=== PATIENT | female | born 1985 | race Caucasian/White ===

== ENCOUNTER 2021-01-01 17:25 | Emergency (ER) | payer OTHER ==
[~2021-01-01] VITALS: Ht 154.9 cm; Wt 68.2 kg
[2021-01-01] MEDS ORDERED: CYCL-331 PO (19:26)
--- NOTE | 2021-01-01 19:26 | PHYS DOC ---
Past History Past Medical History: No Pertinent History Past Surgical History: Tubal ligation Alcohol Use: None Adult General Chief Complaint Chief Complaint: BACK PAIN OR INJURY HPI HPI Patient is a 35-year-old female who presents with back pain. States she was lifting up her child earlier in the day and felt a twinge and her upper back in between her shoulder blades, more on the left than the right. States it hurts a little, 2 out of 10, but feels really tight and like she is having a spasm/charley horse. Denies any other injuries. Denies any numbness/weakness/tingling. States she is able to ambulate without issue. States she took some Aleve earlier which provided a small amount of relief. Review of Systems Review of Systems Review of systems otherwise unremarkable except noted in HPI Current Medications Current Medications Current Medications Medications (Trade) Dose Ordered Sig/Eleazar Start Time Stop Time Status Last Admin Dose Admin Cyclobenzaprine HCl (Flexeril) 10 mg 1X ONCE 01/01/21 19:30 01/01/21 19:31 UNV Oxycodone/ Acetaminophen (Percocet 5/325) 1 tab 1X ONCE 01/01/21 19:30 01/01/21 19:31 UNV Allergies Allergies Allergies Coded Allergies Type Severity Reaction Last Updated Verified mebendazole Allergy Unknown 01/01/21 Yes Physical Exam Physical Exam Constitutional: Well developed, well nourished, no acute distress, non-toxic appearance. [] HENT: Normocephalic, atraumatic, Neck: Normal range of motion, no tenderness, supple, no stridor. [] Cardiovascular:Heart rate regular rhythm, no murmur [] Lungs & Thorax: Bilateral breath sounds clear to auscultation [] Abdomen: soft, no tenderness, no masses, no pulsatile masses. [] Skin: Warm, dry, no erythema, no rash. [] Back: No tenderness, Extremities: No tenderness, ROM intact, no edema. [] Neurologic: Alert and oriented X 3, normal motor function, normal sensory function, able to sit, stand and walk without issue, no focal deficits noted. [] Psychologic: Affect normal, judgement normal, mood normal. [] Current Patient Data Vital Signs Vital Signs Date Time Temp Pulse Resp B/P (MAP) Pulse Ox O2 Delivery O2 Flow Rate FiO2 5/22/21 17:33 98.1 83 16 114/61 (78) 96 Room Air EKG EKG [] Radiology/Procedures Radiology/Procedures [] Heart Score C/O Chest Pain: No Risk Factors: Risk Factors: DM, Current or recent (<one month) smoker, HTN, HLP, family history of CAD, obesity. Risk Scores: Risk Factors: DM, Current or recent (<one month) smoker, HTN, HLP, family history of CAD, obesity. Course & Med Decision Making Course & Med Decision Making Patient is a 35-year-old female who presents with back pain Vital signs not concerning. Physical exam noted above. No focal neurologic deficits appreciated. The patient pain medication and discussed pain regimen at home. Gave education. Advised to follow-up with primary care as needed. Gave return precautions to the ED. Patient grateful, verbalized understanding and agreed with plan of discharge. [] Dragon Disclaimer Dragon Disclaimer This electronic medical record was generated, in whole or in part, using a voice recognition dictation system. Departure Departure: Impression: Primary Impression: Back pain Disposition: HOME / SELF CARE / HOMELESS Condition: GOOD Referrals: PCP,UNKNOWN (PCP) LITO HERNÁNDEZ MD Patient Instructions: Back Pain, Adult Additional Instructions: Please read all the attached information very carefully. Please begin use of Tylenol, ibuprofen and ice as discussed. You can use your muscle relaxer as prescribed and needed. Please follow-up with your primary care physician as needed. Please come back to the ED with new or concerning symptoms as discussed. Scripts Cyclobenzaprine Hcl (CYCLOBENZAPRINE HCL) 10 Mg Tablet 1 TAB PO BID PRN for MUSCLE SPASMS, #14 TAB Prov: MAEVE FLORES MD 01/01/21 MAEVE FLORES MD January 01, 2021 19:26
[2021-01-01] MEDS ORDERED: CYCLOBENZAPRINE 10 MG TABLET. PO ONE (19:30)
[2021-01-01] MEDS ORDERED: oxyCODONE/APAP 5/325 1 TAB TABLET PO ONE (19:30)
[2021-01-01 19:34] VITALS: BP 110/68
== END 2021-01-01 19:35 | disposition home or self-care (01) ==
LOC: ER 17:25
DX: M54.9 Dorsalgia, unspecified (principal); Z88.6 Allergy status to analgesic agent; Z98.51 Tubal ligation status
CPT/HCPCS: 99283-25